=== PATIENT | female | born 1985 | race African-American/Black ===

== ENCOUNTER → 2020-10-08 07:40 | Outpatient (BNVA) | payer BC, SELFPAY | PROVIDERS: PCP Physician Assistant; Referring Provider Physician Assistant; Visit Provider Internal Medicine ==

== ENCOUNTER 2020-11-28 08:15 | Outpatient (REF) | payer BC, SELFPAY ==
[2020-11-28 09:06] LABS: Anion Gap 11 (12-20); Blood Urea Nitrogen 12 mg/dL (9-16); Calcium 9.1 mg/dL (8.4-10.2); Carbon Dioxide 25 mmol/L (22-29); Chloride 107 mmol/L (96-108); Estimated Glomerular Filt Rate > 60; Glucose Random 89 mg/dL (60-115); Potassium 4.7 mmol/L (3.3-5.1); Sodium 138 mmol/L (135-145)
[2020-11-28 09:23] LABS: Thyroid Stimulating Hormone 0.83 uIU/mL (0.32-4.0); Vitamin D 25-OH Total 19.7 ng/mL (>30)
[2020-11-29 07:57] LABS: Triiodothyronine T3 Total 107 ng/dL (76-181)
[2020-11-30 21:42] LABS: Adrenocorticotropic Hormone 10 pg/mL (6-50)
[2020-12-01 17:31] LABS: Sex Hormone Binding Globulin 21 nmol/L (17-124)
[2020-12-02 13:01] LABS: Follicle Stimulating Hormone 8.4 mIU/mL; Lutenizing Hormone 4.3 mIU/mL; Prolactin Undiluted 44.8 ng/mL
[2020-12-03 13:02] LABS: IGF-1 (Somatomedin C) 108 ng/mL (53-331); IGF-1 Z Score (Female) -0.6 SD (-2.0 - +2.0)
[2020-12-04 21:47] LABS: Estradiol Ultra Sensitive 23 pg/mL
[2020-12-05 01:47] LABS: Estradiol Free 0.45 pg/mL; Estradiol, Ultrasensitive 24 pg/mL
== END 2020-11-28 08:16 | disposition home or self-care (01) ==
LOC: HO.LAB 08:15
PROVIDERS: PCP Physician Assistant; Visit Provider Internal Medicine
DX: E22.1 Hyperprolactinemia (principal); E55.9 Vitamin D deficiency, unspecified
CPT/HCPCS: 36415; 80048; 82024; 82306; 82533; 82670; 82681; 83001; 83002; 84146; 84270; 84305; 84439; 84443; 84480

== ENCOUNTER → 2020-11-30 08:43 | Outpatient (BNVA) | payer BC, SELFPAY | PROVIDERS: PCP Physician Assistant; Visit Provider Internal Medicine ==

== ENCOUNTER → 2021-06-10 08:50 | Outpatient (REF) | payer BC, SELFPAY | LOC: HO.SL 08:50 | PROVIDERS: Visit Provider Physician Assistant | DX: G47.33 Obstructive sleep apnea (adult) (pediatric) (principal) | CPT/HCPCS: 95806 ==

== ENCOUNTER → 2021-07-22 12:42 | Outpatient (BNVA) | payer BC, SELFPAY | PROVIDERS: PCP Physician Assistant; Visit Provider Internal Medicine Pulmonary Disease ==